=== PATIENT | male | born 1950 | race Caucasian/White ===

== ENCOUNTER 2017-01-08 07:33 | Emergency (ER) | payer BC ==
[2017-01-08 07:38] VITALS: BP 138/85
--- NOTE | 2017-01-08 08:54 | RAD ---
INDICATION: Hand pain after punching a wall COMPARISON: None. TECHNIQUE: 4 views of the right hand were obtained. FINDINGS: There is a slightly displaced fracture through the diaphysis of the right fifth metacarpal. Remaining visualized bones are intact and properly aligned. IMPRESSION: Slightly displaced diaphyseal fracture of the right fifth metacarpal.
--- NOTE | 2017-01-08 13:37 | ED ---
Kary Finnegan Auryana, scribed for Noe Peguero MD on 01/08/17 at 0819 . Upper Extremity Pain - HPI Summary HPI Summary: 66 year old male presents with right hand pain starting 6 days ago. He states that he hit a wall - states that he does not know why. He also has right hand swelling and pain with movement along the pinky finger but has full ROM. He denies any skin breaks or any other injuries. Patient is right handed. - History of Current Complaint Chief Complaint: EDExtremityUpper Stated Complaint: RT HAND INJURY Time Seen by Provider: 01/08/17 08:05 Hx Obtained From: Patient Mechanism Of Injury: Blunt Trauma - wall Onset/Duration: Started Minutes Ago - about 20 minutes [employer], Traumatic Timing: Constant Severity Initially: Mild Severity Currently: Mild Pain Location: Hand - right Aggravating Factor(s): Movement Alleviating Factor(s): Nothing Associated Signs & Symptoms: Positive: Swelling Related History: Dominant Hand Right PMH/Surg Hx/FS Hx/Imm Hx GI History: Reports: Hx Diverticulosis Sensory History: Reports: Hx Contacts or Glasses - glasses Opthamlomology History: Reports: Hx Contacts or Glasses - glasses - Surgical History Surgery Procedure, Year, and Place: R eye catatact surgery Infectious Disease History: No Infectious Disease History: Denies: Traveled Outside the [place] in Last 30 Days - Family History Known Family History: Positive: Cardiac Disease, Diabetes - Social History Occupation: Retired Lives: With Family - Alcohol Use: Occasionally Hx Substance Use: No Substance Use Type: Reports: None Hx Tobacco Use: Yes Smoking Status (MU): Smoker, Current Status Unknown Review of Systems Constitutional: Negative Eyes: Negative ENT: Negative Cardiovascular: Negative Respiratory: Negative Gastrointestinal: Negative Genitourinary: Negative Positive: Edema - R hand , Other - RIGHT HAND PAIN Skin: Negative Neurological: Negative Psychological: Normal All Other Systems Reviewed And Are Negative: Yes Physical Exam - Summary Physical Exam Summary: The patient is well-nourished in no acute distress and in no acute pain. The skin is warm and dry and skin color reflects adequate perfusion. HEENT: The head is normocephalic and atraumatic. The pupils are equal and reactive. The conjunctivae are clear and without drainage. Nares are patent and without drainage. Mouth reveals moist mucous membranes and the throat is without erythema and exudate. The external ears are intact. The ear canals are patent and without drainage. The tympanic membranes are intact. Neck is supple with full range of motion and non-tender. There are no carotid bruits. There is no neck vein distension. Respiratory: Chest is non-tender. Lungs are clear to auscultation and breath sounds are symmetrical and equal. Cardiovascular: Heart is regular rate and rhythm. There is no murmur or rub auscultated. There is no peripheral edema and pulses are symmetrical and equal. Abdomen: The abdomen is soft and non-tender. There are normal bowel sounds heard in all four quadrants and there is no organomegaly palpated. Musculoskeletal: There is no back pain noted. Pain at the 5th metacarpal- distal aspect with full range of motion, flexion and extension. There is good capillary refill and pulses. There is no peripheral edema or calf tenderness elicited. Finger to thumb is good. No pain at carpal bones, elbow, wrist or shoulder with movement. Neurological: Patient is alert and oriented to person, place and time. The patient has symmetrical motor strength in all four extremities. Cranial nerves are grossly intact. Deep tendon reflexes are symmetrical and equal in all four extremities. Psychiatric: The patient has an appropriate affect and does not exhibit any anxiety or depression. Triage Information Reviewed: Yes Vital Signs On Initial Exam: Initial Vitals Temp Pulse Resp BP Pulse Ox 98.5 F 60 16 138/85 95 01/08/17 07:36 01/08/17 07:36 01/08/17 07:36 01/08/17 07:36 01/08/17 07:36 Vital Signs Reviewed: Yes Procedures - Splinting Location: R hand - Splinting by Dr. Peguero Hand-Made Type: orthoglass - 4 INCH OCL Splint: ulnar - slight flexion with ulnar gutter Pre-Proc Neuro Vasc Exam: normal Post-Proc Neuro Vasc Exam: normal Diagnostics - Vital Signs Vital Signs Temp Pulse Resp BP Pulse Ox 01/08/17 07:37 97.9 F 60 16 138/85 95 01/08/17 07:36 98.5 F 60 16 138/85 95 - Laboratory Lab Statement: Any lab studies that have been ordered have been reviewed, and results considered in the medical decision making process. - Radiology R HAND XR Xray Interpretation: Positive (See Comments) - FINDINGS: There is a slightly displaced fracture through the diaphysis of the right fifth metacarpal. Remaining visualized bones are intact and properly aligned. Radiology Interpretation Completed By: Radiologist Course/Dx - Course Assessment/Plan: 66 year old male presents with right hand pain and swelling s/ p hitting wall - unknown reason for action. RIhgt hand dominent with good finger to thumb. No elbow, shoulder, or wrist pain with flexion. R hand XR- positive fracture with slight displacement. Will splint and discharge home with Dr. Fields F/U. States would not like pain medication for hand - advised to take ibuprofen as needed. Given paperwork on compartment syndrome and advised to look out for symptoms. - Diagnoses Differential Diagnosis/HQI/PQRI: Positive: Fracture (Closed), Other - dislocation Provider Diagnoses: Metacarpal bone fracture Discharge - Discharge Plan Condition: Stable Disposition: HOME Patient Education Materials: Hand Fracture (ED), RICE Therapy (ED), Ibuprofen ( By mouth) Referrals: Brian Fields MD [Medical Doctor] - 2 Days The documentation as recorded by the Kary acosta Auryana accurately reflects the service I personally performed and the decisions made by , Noe Peguero MD.
== END 2017-01-08 09:34 | disposition home or self-care (01) ==
LOC: ED 07:33
DX: S62.306A Unspecified fracture of fifth metacarpal bone, right hand, initial encounter for closed fracture (principal); R60.0 Localized edema; W22.01XA Walked into wall, initial encounter; Y93.89 Activity, other specified; Y92.9 Unspecified place or not applicable
CPT/HCPCS: 99282

== ENCOUNTER 2017-10-01 07:35 | Emergency (ER) | payer MEDICARE, OTHER ==
[2017-10-01] MEDS ORDERED: NS 0.9% 1000 ML* 1,000 ML IV ONE (07:52)
[2017-10-01 08:32] LABS: ABS Basophils 0.1 10^3/ul (0-0.2); ABS Eosinophils 0.3 10^3/ul (0-0.6); ABS Lymphocytes 2.2 10^3/ul (1.0-4.8); ABS Neutrophils 8.4 10^3/ul (1.5-7.7); ABS Nucleated RBC 0 10^3/ul; Eosinophil % 2.4 % (0-6); Hematocrit 51 % (42-52); Hemoglobin 17.4 g/dl (14.0-18.0); Lymphocyte % 18.5 % (25-47); Mean Corpuscular HGB Conc 34 g/dl (31-36); Mean Corpuscular Hemoglobin 30 pg (27-31); Mean Corpuscular Volume 90 fL (80-94); Mean Platelet Volume 8 um3 (7.4-10.4); Nucleated Red Blood Cells % 0.1; Platelet Count 303 10^3/ul (150-450); Red Blood Count 5.72 10^6/ul (4.0-5.4); Red Cell Distribution Width 14 % (10.5-15); White Blood Count 11.9 10^3/ul (3.5-10.8)
[2017-10-01 08:44] LABS: EGFR Non-African American 74.1 (>60)
[2017-10-01 08:47] LABS: Urine Appearance Cloudy; Urine Blood 3+ (Negative); Urine Ketones Negative (Negative); Urine Protein 2+(100 mg/dL) (Negative); Urine Urobilinogen Negative (Negative)
--- NOTE | 2017-10-01 08:48 | RAD ---
INDICATION: Right-sided flank pain, hematuria. COMPARISON: Comparison is made with a prior CT of the abdomen and pelvis from June 27, 2007. TECHNIQUE: A CT scan of the abdomen and pelvis was performed without intravenous or oral contrast. Contiguous axial sections were obtained from the lung bases through the symphysis pubis. Images were reconstructed in the coronal and sagittal planes. FINDINGS: There is dependent bilateral lower lobe subsegmental atelectasis. No pleural effusion is present. The liver is mildly enlarged and decreased in attenuation consistent with fatty infiltration. No significant focal abnormality is seen on this noncontrast study. No calcified gallstones are noted. The pancreas and spleen appear to be within normal limits. The adrenal glands and kidneys are normal in size. No renal calculi are seen. There are multiple areas of lobulated urinary bladder wall thickening with areas of calcification highly suspicious for bladder tumor. No hydronephrosis is seen. The aorta is normal in caliber with mild calcific plaque present. No significant enlarged retroperitoneal lymph nodes are seen. The stomach, small and large bowel appear nondistended. The appendix is within normal limits. There is moderate descending and sigmoid diverticulosis. There is thickening of the wall of the mid sigmoid colon. This is in the region of a prior episode of diverticulitis although note acute changes are appreciated. No free intraperitoneal air or fluid is seen. No significant focal osseous abnormality is seen. The results of this examination were discussed with the referring clinician. IMPRESSION: 1. LOBULATED THICKENING OF THE WALL OF THE URINARY BLADDER HIGHLY SUSPICIOUS FOR A NEOPLASTIC PROCESS. RECOMMEND UROLOGIC CONSULTATION AND OUTPATIENT CT UROGRAPHY FOR FURTHER EVALUATION. 2. THICKENING OF THE WALL OF THE SIGMOID COLON CONSIDER COLONOSCOPY FOR FURTHER EVALUATION. 3. MILD HEPATOMEGALY AND HEPATIC STEATOSIS.
[2017-10-01 08:49] LABS: Urine Color Red
[2017-10-01 08:52] LABS: INR 0.97 (0.77-1.02)
[2017-10-01] MEDS ORDERED: Ciprofloxacin 400MG IVPREMIX(* 400 MG/200 ML BAG IVPB ONE (09:24)
[2017-10-01] MEDS ORDERED: Iohexol 300* (CONTRAST) 10 ML SDV IV ONE (10:51)
--- NOTE | 2017-10-01 11:37 | RAD ---
CLINICAL HISTORY: Bloody urine, bladder thickening with hematuria COMPARISON: CT dated October 01, 2017 at 8:22 AM, CT dated June 27, 2007 TECHNIQUE: Multiple contiguous axial CT scans were obtained of the abdomen and pelvis after the administration of intravenous contrast. Coronal and sagittal multiplanar reformations are submitted for review. Oral contrast was not administered. Delayed images were obtained through the abdomen and pelvis. 3-D volumetric reconstructions of the renal collecting system are submitted. FINDINGS: LUNG BASES: The lung bases are clear. LIVER: The liver is diffusely low in attenuation compared to the spleen. There are no focal hepatic parenchymal masses. BILE DUCTS: There is no intrahepatic or extrahepatic biliary dilatation. GALLBLADDER: The gallbladder is normal, without pericholecystic inflammatory change. PANCREAS: The pancreas is normal, without mass or ductal dilatation. SPLEEN: Normal in size and appearance. UPPER GI TRACT: Evaluation of the gastrointestinal tract is limited by incomplete gastric distention. The upper GI tract is unremarkable. SMALL BOWEL AND MESENTERY: The small bowel is normal in contour, course, and caliber. There is no obstruction or dilatation. COLON: There are extensive diverticula of the sigmoid colon. There is mucosal thickening of the sigmoid colon. There is no pericolonic inflammatory change. ADRENALS: Normal bilaterally. KIDNEYS: The kidneys are normal in shape, size, contour, and axis. There is no hydronephrosis or nephrolithiasis. BLADDER: Again noted are multiple lobulated masses of the bladder wall. These are enhancing. There is no appreciable perivesicular extension. PELVIC ORGANS: The prostate gland is normal. The seminal vesicles are symmetric. AORTA: There is calcific atherosclerotic disease of the abdominal aorta and its branches, without aneurysmal dilatation IVC: Unremarkable LYMPH NODES: There is no lymphadenopathy by size criteria. ABDOMINAL WALL: There is no evidence for abdominal wall hernia. BONES AND SOFT TISSUES: Degenerative changes are noted of the spine OTHER: None IMPRESSION: 1. THE LOBULATED MASSES OF THE BLADDER WALL ARE AGAIN IDENTIFIED. THESE ARE ENHANCING, MOST CONSISTENT WITH BLADDER WALL NEOPLASM. THERE ARE NO APPRECIABLE UPPER URINARY TRACT LESIONS. 2. AGAIN NOTED IS DIVERTICULOSIS OF THE SIGMOID COLON WITH SIGMOID COLONIC MUCOSAL THICKENING. RECOMMEND CONSIDERATION OF CORRELATION WITH DIRECT VISUALIZATION TO EXCLUDE MUCOSAL NEOPLASM. 3. ATHEROSCLEROSIS. 4. FATTY INFILTRATION OF THE LIVER
[2017-10-01 12:18] VITALS: BP 115/77
--- NOTE | 2017-10-02 10:13 | ED ---
Aurelio Finnegan Gabriel, scribed for Jim Boyer MD on 10/01/17 at 0759 . GI/ HPI - HPI Summary HPI Summary: This patient is a 14 year old M presenting to [facility] accompanied by his with a chief complaint of hematuria since 09/30/17 at 1700. The patient rates the pain 3/10 in severity. Patient reports dysuria, flank pain, and increased urinary frequency. Patient denies fever. Patient states he just recently started taking super beta prostate but has been having these symptoms on and off for years. Patient is not on blood thinners. - History of Current Complaint Chief Complaint: EDUrogenitalProblems Time Seen by Provider: 10/01/17 07:52 Stated Complaint: BLOODY URINE Hx Obtained From: Patient Onset/Duration: Started Days Ago - 1, Still Present Severity: Mild Current Severity: Mild Pain Intensity: 3 Location of Pain: Flank Associated Signs and Symptoms: Positive: Hematuria, Other: - dysuria, flank pain , and increased urinary frequency.. Negative: Fever - Allergy/Home Medications Allergies/Adverse Reactions: Allergies Allergy/AdvReac Type Severity Reaction Status Date / Time No Known Allergies Allergy Verified 10/01/17 08:21 Home Medications: Home Medications Misc Natural Products [Prostate Health] 1 cap PO BID 10/01/17 [History Confirmed 10/01/17] PMH/Surg Hx/FS Hx/Imm Hx GI History: Reports: Hx Diverticulosis History: Reports: Hx Benign Prostatic Hyperplasia Sensory History: Reports: Hx Contacts or Glasses - glasses Opthamlomology History: Reports: Hx Contacts or Glasses - glasses - Surgical History Surgery Procedure, Year, and Place: R eye catatact surgery Infectious Disease History: No Infectious Disease History: Denies: Traveled Outside the [place] in Last 30 Days - Family History Known Family History: Positive: Cardiac Disease, Diabetes Negative: Renal Disease, Respiratory Disease, Seizure Disorder - Social History Lives: With Family Alcohol Use: Occasionally Hx Substance Use: No Substance Use Type: Reports: None Hx Tobacco Use: Yes Smoking Status (MU): Smoker, Current Status Unknown Review of Systems Negative: Fever Positive: dysuria, frequency - increased , flank pain, hematuria All Other Systems Reviewed And Are Negative: Yes Physical Exam - Summary Physical Exam Summary: VITAL SIGNS: Reviewed. GENERAL: Patient is a well-developed and nourished male who is lying comfortable in the stretcher. Patient is not in any acute respiratory distress. HEAD AND FACE: No signs of trauma. No ecchymosis, hematomas or skull depressions. No sinus tenderness. EYES: PERRLA, EOMI x 2, No injected conjunctiva, no nystagmus. EARS: Hearing grossly intact. Ear canals and tympanic membranes are within normal limits. MOUTH: Oropharynx within normal limits. NECK: Supple, trachea is midline, no adenopathy, no JVD, no carotid bruit, no c- spine tenderness, neck with full ROM. CHEST: Symmetric, no tenderness at palpation LUNGS: Clear to auscultation bilaterally. No wheezing or crackles. CVS: Regular rate and rhythm, S1 and S2 present, no murmurs or gallops appreciated. ABDOMEN: Soft. No signs of distention. No rebound no guarding, and no masses palpated. Bowel sounds are normal.Slight right CVA tenderness EXTREMITIES: FROM in all major joints, no edema, no cyanosis or clubbing. NEURO: Alert and oriented x 3. No acute neurological deficits. Speech is normal and follows commands. SKIN: Dry and warm Triage Information Reviewed: Yes Vital Signs On Initial Exam: Initial Vitals Temp Pulse Resp BP Pulse Ox 98.4 F 58 18 134/76 92 10/01/17 07:44 10/01/17 07:44 10/01/17 07:44 10/01/17 07:44 10/01/17 07:44 Vital Signs Reviewed: Yes Diagnostics - Vital Signs Vital Signs Temp Pulse Resp BP Pulse Ox 10/01/17 07:44 98.4 F 58 18 134/76 92 - Laboratory Lab Results: Lab Results 10/01/17 10/01/17 10/01/17 Range/Units 08:11 08:11 08:11 WBC 11.9 H (3.5-10.8) 10^3/ul RBC 5.72 H (4.0-5.4) 10^6/ul Hgb 17.4 (14.0-18.0) g/dl Hct 51 (42-52) % MCV 90 (80-94) fL MCH 30 (27-31) pg MCHC 34 (31-36) g/dl RDW 14 (10.5-15) % Plt Count 303 (150-450) 10^3/ul MPV 8 (7.4-10.4) um3 Neut % (Auto) 70.4 (38-83) % Lymph % (Auto) 18.5 L (25-47) % Douglas % (Auto) 8.0 (1-9) % Eos % (Auto) 2.4 (0-6) % Baso % (Auto) 0.7 (0-2) % Absolute Neuts (auto) 8.4 H (1.5-7.7) 10^3/ul Absolute Lymphs (auto) 2.2 (1.0-4.8) 10^3/ul Absolute Monos (auto) 1.0 H (0-0.8) 10^3/ul Absolute Eos (auto) 0.3 (0-0.6) 10^3/ul Absolute Basos (auto) 0.1 (0-0.2) 10^3/ul Absolute Nucleated RBC 0 10^3/ul Nucleated RBC % 0.1 INR (Anticoag Therapy) (0.77-1.02) APTT (26.0-36.3) seconds Sodium 135 (133-145) mmol/L Potassium 4.2 (3.5-5.0) mmol/L Chloride 104 (101-111) mmol/L Carbon Dioxide 24 (22-32) mmol/L Anion Gap 7 (2-11) mmol/L BUN 17 (6-24) mg/dL Creatinine 1.01 (0.67-1.17) mg/dL Est GFR ( Amer) 95.3 (>60) Est GFR (Non-Af Amer) 74.1 (>60) BUN/Creatinine Ratio 16.8 (8-20) Glucose 149 H (70-100) mg/dL Lactic Acid 0.8 (0.5-2.0) mmol/L Calcium 9.4 (8.6-10.3) mg/dL Total Bilirubin 0.50 (0.2-1.0) mg/dL AST 14 (13-39) U/L ALT 21 (7-52) U/L Alkaline Phosphatase 89 (34-104) U/L C-Reactive Protein 13.04 H (< 5.00) mg/L B-Natriuretic Peptide ( - 100) pg/mL Total Protein 7.2 (6.4-8.9) g/dL Albumin 4.0 (3.2-5.2) g/dL Globulin 3.2 (2-4) g/dL Albumin/Globulin Ratio 1.3 (1-3) Lipase 16 (11.0-82.0) U/L Urine Color Urine Appearance Urine pH (5-9) Ur Specific [place] (1.010-1.030) Urine Protein (Negative) Urine Ketones (Negative) Urine Blood (Negative) Urine Nitrate (Negative) Urine Bilirubin (Negative) Urine Urobilinogen (Negative) Ur Leukocyte Esterase (Negative) Urine WBC (Auto) (Absent) Urine RBC (Auto) (Absent) Urine Bacteria (Absent) Urine Glucose (Negative) 10/01/17 10/01/17 10/01/17 Range/Units 08:11 08:11 08:23 WBC (3.5-10.8) 10^3/ul RBC (4.0-5.4) 10^6/ul Hgb (14.0-18.0) g/dl Hct (42-52) % MCV (80-94) fL MCH (27-31) pg MCHC (31-36) g/dl RDW (10.5-15) % Plt Count (150-450) 10^3/ul MPV (7.4-10.4) um3 Neut % (Auto) (38-83) % Lymph % (Auto) (25-47) % Douglas % (Auto) (1-9) % Eos % (Auto) (0-6) % Baso % (Auto) (0-2) % Absolute Neuts (auto) (1.5-7.7) 10^3/ul Absolute Lymphs (auto) (1.0-4.8) 10^3/ul Absolute Monos (auto) (0-0.8) 10^3/ul Absolute Eos (auto) (0-0.6) 10^3/ul Absolute Basos (auto) (0-0.2) 10^3/ul Absolute Nucleated RBC 10^3/ul Nucleated RBC % INR (Anticoag Therapy) 0.97 (0.77-1.02) APTT 38.8 H (26.0-36.3) seconds Sodium (133-145) mmol/L Potassium (3.5-5.0) mmol/L Chloride (101-111) mmol/L Carbon Dioxide (22-32) mmol/L Anion Gap (2-11) mmol/L BUN (6-24) mg/dL Creatinine (0.67-1.17) mg/dL Est GFR ( Amer) (>60) Est GFR (Non-Af Amer) (>60) BUN/Creatinine Ratio (8-20) Glucose (70-100) mg/dL Lactic Acid (0.5-2.0) mmol/L Calcium (8.6-10.3) mg/dL Total Bilirubin (0.2-1.0) mg/dL AST (13-39) U/L ALT (7-52) U/L Alkaline Phosphatase (34-104) U/L C-Reactive Protein (< 5.00) mg/L B-Natriuretic Peptide 32 ( - 100) pg/mL Total Protein (6.4-8.9) g/dL Albumin (3.2-5.2) g/dL Globulin (2-4) g/dL Albumin/Globulin Ratio (1-3) Lipase (11.0-82.0) U/L Urine Color Red A Urine Appearance Cloudy Urine pH 6.0 (5-9) Ur Specific [place] 1.010 (1.010-1.030) Urine Protein 2+(100 mg/dl) H (Negative) Urine Ketones Negative (Negative) Urine Blood 3+ H (Negative) Urine Nitrate Negative (Negative) Urine Bilirubin Negative (Negative) Urine Urobilinogen Negative (Negative) Ur Leukocyte Esterase Trace H (Negative) Urine WBC (Auto) 1+(6-10/hpf) H (Absent) Urine RBC (Auto) 3+(>10/hpf) H (Absent) Urine Bacteria Absent (Absent) Urine Glucose Negative (Negative) Result Diagrams: 10/01/17 08:11 10/01/17 08:11 Lab Statement: Any lab studies that have been ordered have been reviewed, and results considered in the medical decision making process. - CT CT ABD/Pelvis CT Interpretation Completed By: Radiologist - , 1. LOBULATED THICKENING OF THE WALL OF THE URINARY BLADDER HIGHLY SUSPICIOUS FOR A NEOPLASTIC PROCESS. RECOMMEND UROLOGIC CONSULTATION AND OUTPATIENT CT UROGRAPHY FOR FURTHER EVALUATION. 2. THICKENING OF THE WALL OF THE SIGMOID COLON CONSIDER COLONOSCOPY FOR FURTHER EVALUATION. 3. MILD HEPATOMEGALY AND HEPATIC STEATOSIS. ED physician has reviewed this radiology report. CT urogram CT Interpretation Completed By: Radiologist - 1. THE LOBULATED MASSES OF THE BLADDER WALL ARE AGAIN IDENTIFIED. THESE ARE ENHANCING, MOST CONSISTENT WITH BLADDER WALL NEOPLASM. THERE ARE NO APPRECIABLE UPPER URINARY TRACT LESIONS. 2. AGAIN NOTED IS DIVERTICULOSIS OF THE SIGMOID COLON WITH SIGMOID COLONIC MUCOSAL THICKENING. RECOMMEND CONSIDERATION OF CORRELATION WITH DIRECT VISUALIZATION TO EXCLUDE MUCOSAL NEOPLASM. 3. ATHEROSCLEROSIS. 4. FATTY INFILTRATION OF THE LIVER ED physician has reviewed this radiology report. GIGU Course/Dx - Course Assessment/Plan: In the ED course an IV access was obtained. Patient was placed in a case monitor. Patient was started with IV fluids. Labs without any significant abnormality except for WBC 11.9, UA with red color, 3+ blood, positive ketones and positive UTI. Abdominal and pelvic CT IMPRESSION: 1. LOBULATED THICKENING OF THE WALL OF THE URINARY BLADDER HIGHLY SUSPICIOUS FOR A NEOPLASTIC PROCESS. RECOMMEND UROLOGIC CONSULTATION AND OUTPATIENT CT UROGRAPHY FOR FURTHER EVALUATION. 2. THICKENING OF THE WALL OF THE SIGMOID COLON CONSIDER COLONOSCOPY FOR FURTHER EVALUATION. 3. MILD HEPATOMEGALY AND HEPATIC STEATOSIS. Abdominal and pelvic CT Urogram IMPRESSION: 1. THE LOBULATED MASSES OF THE BLADDER WALL ARE AGAIN IDENTIFIED. THESE ARE ENHANCING, MOST CONSISTENT WITH BLADDER WALL NEOPLASM. THERE ARE NO APPRECIABLE UPPER URINARY TRACT LESIONS. 2. AGAIN NOTED IS DIVERTICULOSIS OF THE SIGMOID COLON WITH SIGMOID COLONIC MUCOSAL THICKENING. RECOMMEND CONSIDERATION OF CORRELATION WITH DIRECT VISUALIZATION TO EXCLUDE MUCOSAL NEOPLASM. 3. ATHEROSCLEROSIS. 4. FATTY INFILTRATION OF THE LIVER. I discussed the case with Dr. Osorio and he agrees with management and he recommends discharge home and will f/u with him at his office on Wednesday at 8AM. I discussed all the findings and test results with the patient. Patient was instructed to return to the emergency room immediately if any of the symptoms return or worsens. Plan of care was discussed with the patient and understands and agrees. All questions were answered at patient satisfaction. There were no further complaints or concerns. Lung exam before discharge: CTA B/L. Good air exchange. No wheezing or crackles heard. CVS: S1 and S2 present. No murmurs appreciated. Patient is alert and oriented x 3. Patient is hemodynamically stable. Patient will be discharged home with follow up PCP in the next 2-3 days - Diagnoses Differential Diagnoses - Male: Renal Calculi, Renal Colic, Ureteral Calculi, Urinary Tract Infection Provider Diagnoses: Gross hematuria, Bladder wall thickening, r/o malignancy - Physician Notifications Discussed Care Of Patient With: Lencho Osorio Time Discussed With Above Provider: 10:18 Instructed by Provider To: Other - 1010 We discussed patient care with Dr. Osorio and they recommended the patient should follow up with him on Wednesday the at 8am. 1033 Dr. Osorio states he would like a CT Urogram before the patient leaves. Discharge - Discharge Plan Condition: Stable Disposition: HOME Patient Education Materials: Hematuria (ED) Referrals: Lencho Osorio MD [Medical Doctor] - 3 Days Jim Olguin MD [Primary Care Provider] - 3 Days Additional Instructions: Follow up with Dr. Osorio on Wednesday the at 8am. RETURN TO EMERGENCY DEPARTMENT FOR ANY NEW OR WORSENING SYMPTOMS The documentation as recorded by the Aurelio acosta Gabriel accurately reflects the service I personally performed and the decisions made by , Jim Boyer MD.
== END 2017-10-01 12:17 | disposition home or self-care (01) ==
LOC: ED 07:35
DX: R31.0 Gross hematuria (principal); N32.9 Bladder disorder, unspecified; K57.30 Diverticulosis of large intestine without perforation or abscess without bleeding; I70.0 Atherosclerosis of aorta; K76.0 Fatty (change of) liver, not elsewhere classified; F17.200 Nicotine dependence, unspecified, uncomplicated
CPT/HCPCS: 36415; 74176; 74178; 76377; 80053; 81003; 81015; 83605; 83690; 83880; 85025; 85610; 85730; 86140; 87040; 87086; 96361; 96365; 96366; 99283; J0744; Q9967

== ENCOUNTER 2017-10-20 07:33 | Observation (INO) | payer MEDICARE, OTHER ==
--- NOTE | 2017-10-07 10:20 | HP ---
CC: Dr. Jim Olguin * ADMITTING HISTORY AND PHYSICAL: DATE OF ADMISSION: 10/20/17 - [facility] ADMITTING DIAGNOSES: 1. Gross hematuria. 2. Multiple large bladder tumors. PLANNED PROCEDURE: Transurethral resection of multiple bladder tumors, possible bilateral stent insertion. SURGEON: Dr. Osorio. ADMITTING HISTORY OF PRESENT ILLNESS: Hai Sterling is a 67-year-old chronic smoker, who has had episodic gross hematuria for the last 8 months. This finally got worse last week, prompting him to come to the emergency room where a CT scan was obtained initially without contrast and subsequently with contrast , which revealed multiple large bladder tumors encompassing most of the bladder surface. There was no evidence of hydronephrosis. PAST MEDICAL HISTORY: Unremarkable. PAST SURGICAL HISTORY: Significant for laparotomy as a child for injury and history of right leg fracture. MEDICATIONS ON ADMISSION: None. ALLERGIES: No known drug allergies. SOCIAL HISTORY: Smoking history, he is a chronic heavy smoker with a 50+ pack year smoking history. REVIEW OF SYSTEMS: He denies any chest pain or shortness of breath. There is no history of diabetes mellitus or any other major systemic illness. PHYSICAL EXAMINATION GENERAL: Reveals a pleasant middle-aged gentleman. VITAL SIGNS: Blood pressure is 122/82, pulse 97 per minute, oxygen saturation is 95% on room air. LUNGS: Clear bilaterally. CARDIOVASCULAR EXAM: Regular rate and rhythm. S1, S2. ABDOMEN: Soft without masses. DIAGNOSTIC STUDIES/LAB DATA: Cystoscopy done in my office revealed multiple papillary and solid-appearing tumors involving almost all parts of the bladder including the trigone and the bladder neck and the anterior and lateral basurto, some of these had extensive neovascularity adjacent to them. Interestingly, even though the trigone appears involved by the tumors, the CT scan did not reveal any hydronephrosis. IMPRESSION: My concern obviously that this represents muscle invasive tumor. The plan is for transurethral resection of bladder tumors with possible bilateral stent insertion if needed depending on intraoperative findings and depending on the pathology, he may then possibly require radical cystectomy in the near future. I discussed above plan in detail with Mr. Sterling. PLAN: Transurethral resection of bladder tumors, possible bilateral stent insertion. [id number]/[facility] #: [id number] [facility]ENTERCristian
[~2017-10-20 07:33] MED LIST: Buffered Lidocaine 0.9% SYRIN* 5 ML/SYR SYRINGE INTRADERM ONE; Famotidine IV* 10 MG/ML 2 ML (20 mg) IV ONE
[2017-10-20] MEDS ORDERED: Famotidine IV* 10 MG/ML 2 ML (20 mg) ONE (07:46)
[2017-10-20] MEDS ORDERED: Buffered Lidocaine 0.9% SYRIN* 5 ML/SYR SYRINGE ONE (07:46)
[2017-10-20] MEDS ORDERED: cefTRIAXone(*) 2 GM ADDV.VIAL IVPB ONE (08:15)
[2017-10-20] MEDS ORDERED: Midazolam* 1 MG/ML 2 ML VIAL (2 MG) ONE (08:41)
[2017-10-20] MEDS ORDERED: fentaNYL* 50 MCG/ML 2 ML VIAL (100 MCG VIAL) ONE ×2 (08:41→11:24)
[2017-10-20] MEDS ORDERED: Iohexol 180 (CONTRAST) 10 ML SDV IV ONE (10:42)
[2017-10-20] MEDS ORDERED: Rocuronium* 10 MG/ML VIAL ONE (10:52)
[2017-10-20] MEDS ORDERED: Ondansetron INJ* 2 MG/ML VIAL ONE (11:19)
[2017-10-20] MEDS ORDERED: Propofol* 10 MG/ML 20 ML BTL IV PUSH ONE (11:19)
[2017-10-20] MEDS ORDERED: Ketorolac INJ* 30 MG/ML 1 ML VIAL ONE (11:19)
[2017-10-20] MEDS ORDERED: Dexamethasone IV* 4 MG/ML 1 ML (4 MG) ONE (11:19)
[2017-10-20] MEDS ORDERED: Succinylcholine* 20 MG/ML 10 ML VIAL ONE (11:19)
[2017-10-20] MEDS ORDERED: DiMENhydriNATE IV* 50 MG/ML VIAL IV PUSH PRN (11:41)
[2017-10-20] MEDS ORDERED: HYDROmorphone INJ* 1 MG/ML CARPUJECT SYRINGE IV PRN (11:41)
[2017-10-20] MEDS ORDERED: oxyCODONE/Acetamin 5/325 MG* TAB PO PRN ×2 (11:41→18:49)
[2017-10-20] MEDS ORDERED: Levalbuterol 0.63MG/3ML NEB* UNIT OF USE INH PRN (11:41)
[2017-10-20] MEDS ORDERED: Naloxone* 0.4 MG/ML 1 ML VIAL IV PRN (11:41)
[2017-10-20] MEDS ORDERED: Glycopyrrolate IV* 0.2 MG/ML 1 ML VIAL ONE (11:56)
[2017-10-20] MEDS ORDERED: Neostigmine Methylsulfate* 2 MG/2 ML SYRINGE ONE (11:56)
[2017-10-20] MEDS ORDERED: Levalbuterol 0.63MG/3ML NEB* UNIT OF USE INH ONE (12:29)
[2017-10-20] MEDS ORDERED: oxyCODONE/Acetamin 5/325 MG* TAB ONE (13:30)
[2017-10-20] MEDS ORDERED: Oxybutynin TAB* 5 MG PO PRN (18:49)
[2017-10-21 07:46] VITALS: BP 109/57
--- NOTE | 2017-10-21 11:07 | OP ---
CC: Dr. Olguin OPERATIVE REPORT: DATE OF OPERATION: 10/20/17 DATE OF : 54 SURGEON: Gabriel Medrano MD. ANESTHESIOLOGIST: Dr. Gaston. ANESTHESIA: General. PRE-OP DIAGNOSES: 1. Extensive bladder tumors. 2. Gross hematuria due to above. POST-OP DIAGNOSES: 1. Extensive bladder tumors. 2. Gross hematuria due to above. OPERATIVE PROCEDURE: 1. Cystoscopy. 2. Transurethral resection of bladder tumor (5 cm). INDICATIONS: Mr. Sterling is a 67-year-old white male, who is a chronic heavy smoker and who started having recurrent episodes of gross hematuria for at least the last year. Gross hematuria became a lot worse in the last 2 weeks, with dark gross hematuria. CT urogram showed extensive bladder tumors replacing almost all the bladder wall. There was no hydronephrosis and the collecting systems looked normal. Because of the above history and finding, the patient was admitted for the above procedure, mostly for diagnostic purposes. PATHOLOGY AT CYSTOSCOPY: The penile and bulbar urethrae looked normal. The prostatic urethra measured about 2.5 cm in length. There was a papillary tumor seen at the bladder neck protruding into the prostatic urethra and obstructing the bladder neck. Examination of the bladder showed extensive bladder tumors involving practically the whole bladder wall. Some of the tumors were flat, some of them were papillary, the surface of the tumors was whitish indicating necrosis. The tumors involved the bladder neck circumferentially. The ureteral orifices could not be identified due to the overlying tumors. Some of the tumors were actively oozing. There was relatively poor visualization of the bladder wall considering the extent of the tumors and the slow oozing. DESCRIPTION OF PROCEDURE: After successful general endotracheal anesthesia, the patient was placed in the lithotomy position and was prepped and draped for a cystoscopy. Cystoscopy was performed. The bladder was inspected and above findings were noted. The resectoscope was then introduced into the bladder. Mannitol/sorbitol solution was used for irrigation. The inflow and outflow were adjusted to avoid over distention of the bladder. Considering the extent of the tumors noted, it was decided to resect the accessible tumors mostly for diagnostic purposes and to plan for his future treatments. The tumor located at the bladder neck between 6 o'clock and 12 o' clock was resected all the way deep to muscle. The bleeders were electrocoagulated. The resected tissue was evacuated. Good hemostasis from the resected area was achieved. The ureteral orifices could not be visualized because of the overlying tumors and it was decided not to resect in that area. The resected tissue was felt to be enough for diagnosis and to check for possible muscle invasion. After achieving very good hemostasis from the resected area, there was still oozing from the extensive bladder tumor, and this was felt not to be resectable due to its extent. The bladder was irrigated and the resected tissue was evacuated and sent for pathology. A size 22-Wolof Stearns catheter was passed inside in the bladder and the balloon inflated with 10 cc of water. Irrigation yielded pinkish returns. The patient tolerated the procedure well and left the operating room in good condition. The blood loss from the resection was minimal and the specimen was bladder tumor of left bladder neck and anterior wall. The patient will most likely is going to require a radical cystectomy and an ileal conduit. He will be referred to a tertiary care center for his additional treatments. [id number]/[facility] #: [id number] BABITA
--- NOTE | 2017-10-22 00:09 | DS ---
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 OPERATION: Cystoscopy, transurethral resection of bladder tumor. HISTORY: Mr. Sterling is a 67-year-old white male who is a chronic heavy smoker who was referred to our office by Dr. Olguin because of recurrent episodes of total gross painless hematuria for at least 1 year. He had a CT urogram, which showed normal upper tracts and normal ureters without any hydronephrosis or abnormal filling defects. The bladder showed extensive tumors involving most of the bladder wall. The patient also was having symptoms of bladder outlet obstruction associated with the gross hematuria. PAST MEDICAL HISTORY: Otherwise negative. He gives a past history of laparotomy because of a trauma as a child. He denies any cardiac or pulmonary diseases or symptoms. He is on no chronic medications and has no allergies to medications. PHYSICAL EXAMINATION: He is moderately overweight, otherwise healthy-looking white male. Blood pressure 120/80, pulse of 90, oxygen saturation 96% on room air. Exam of the heart and lungs is normal. Abdominal exam was normal. Rectal exam showed a moderately enlarged, but nonsuspicious prostate. COURSE IN THE HOSPITAL: The patient was taken to the operating room for a cystoscopy under anesthesia. There was extensive number of tumors involving practically all of the bladder wall. The bladder neck was obstructed by tumor, which was protruding into the prosthetic urethra. This was also causing partial obstruction and partial retention. I could not identify the urethral orifices. Tumors looked papillary with superficial necrosis and also looked high -grade probably invasive. I performed resection of the tumor surrounding the bladder neck and the left lateral wall with resection deep to muscle. The intention was mostly for diagnostic purposes to have a tissue diagnosis of the bladder tumors. No attempt was made to resect the rest of the bladder tumors considering their extent. In the recovery room, the patient continued to have gross hematuria very similar to what he had preoperatively and that seemed to be originating from his tumors rather than from resected area, which was very well fulgurated. The patient was kept on catheter drainage and admitted overnight for observation. On catheter drainage only with occasional irrigations, his urine has cleared up. The patient is being discharged home on catheter drainage. I had consulted Dr. Brian Doherty, uro oncologist and surgeon at [facility], regarding Mr. Sterling's case. We both felt that the patient is a candidate for urgent cystectomy for both control of the gross hematuria and attempt at cure. My office is arranging for an urgent consultation with his office. Pathology showed high grade transitional cell carcinoma. The specimen was fragmented and cauterized, and not well oriented, and the pathologist could not identify muscle invasion. Instructions were given for followup care. [id number]/[facility] #: [id number] BABITA
== END 2017-10-21 09:29 | disposition home or self-care (01) ==
LOC: OR 07:33 → SSU 18:40
PROVIDERS: ADMIT Urology; ATTEND Urology
PROC: 0TBB8ZX Excision of Bladder, Via Natural or Artificial Opening Endoscopic, Diagnostic (ICD-10-PCS; principal; 2017-10-20 09:15)
DX: C67.9 Malignant neoplasm of bladder, unspecified (principal); N32.9 Bladder disorder, unspecified; R31.9 Hematuria, unspecified; F17.210 Nicotine dependence, cigarettes, uncomplicated
CPT/HCPCS: 88305; A9270-GY; G0378; J0330; J0696; J1100; J1885; J2250; J2405; J2704; J3010; J7614

== ENCOUNTER 2018-04-26 04:23 | Emergency (ER) | payer MEDICARE, OTHER ==
--- NOTE | 2018-04-26 04:49 | ED ---
Skin Complaint - HPI Summary HPI Summary: Pt is 68 y/o M who presents to ED c/o sore spot on abdomen near his stoma due to urostomy bag. Rates pain as 1/10 in severity. Pt had bladder cancer and on 11/12/17 he had a cystectomy. - History of Current Complaint Chief Complaint: EDRashSkinAbscess Time Seen by Provider: 04/26/18 04:27 Stated Complaint: ABD PAIN Hx Obtained From: Patient Onset/Duration: Still Present Current Severity: Mild Pain Intensity: 1 Pain Scale Used: 0-10 Numeric Skin Location: Abdomen Character: Redness Aggravating Symptom(s): Nothing Alleviating Symptom(s): Nothing - Allergy/Home Medications Allergies/Adverse Reactions: Allergies Allergy/AdvReac Type Severity Reaction Status Date / Time No Known Allergies Allergy Verified 04/26/18 04:30 PMH/Surg Hx/FS Hx/Imm Hx Endocrine/Hematology History: Denies: Hx Diabetes Cardiovascular History: Denies: Hx Hypertension Respiratory History: Reports: Other Respiratory Problems/Disorders - 15+YRS AGO - PNEUMONIA GI History: Reports: Hx Diverticulosis, Other GI Disorders - HX OF DIVERTICULITIS-2011 History: Reports: Hx Benign Prostatic Hyperplasia Denies: Hx Renal Disease Sensory History: Reports: Hx Cataracts, Hx Contacts or Glasses - glasses Denies: Hx Hearing Aid Opthamlomology History: Reports: Hx Cataracts, Hx Contacts or Glasses - glasses - Surgical History Surgery Procedure, Year, and Place: R eye catatact surgery. LEFT EYE CATARACT SURGERY. STITCHES A CHILD Hx Anesthesia Reactions: No Infectious Disease History: No Infectious Disease History: Denies: Traveled Outside the [place] in Last 30 Days - Family History Known Family History: Positive: Cardiac Disease, Diabetes Negative: Renal Disease, Respiratory Disease, Seizure Disorder - Social History Alcohol Use: Occasionally Hx Substance Use: No Substance Use Type: Reports: None Hx Tobacco Use: Yes Smoking Status (MU): Heavy Every Day Tobacco Smoker Amount Used/How Often: 1 PPD X 45 YEARS Have You Smoked in the Last Year: Yes Review of Systems Negative: Fever Positive: Other - sore spot on abdomen All Other Systems Reviewed And Are Negative: Yes Physical Exam - Summary Physical Exam Summary: Appearance: Well-appearing, Well-nourished, lying in bed comfortable Skin: Warm, dry, no obvious rash Eyes: sclera anicteric, no conjunctival pallor ENT: mucous membranes moist Neck: deferred Respiratory: No signs of respiratory distress Cardiovascular: Appears well perfused, pulses are nml Abdomen: deferred Musculoskeletal: Moving all 4 extremities without obvious discomfort Neurological: Awake and alert, mentation is normal, speech is fluent and appropriate Psychiatric: affect is normal, does not appear anxious or depressed Triage Information Reviewed: Yes Vital Signs On Initial Exam: Initial Vitals Temp Pulse Resp BP Pulse Ox 98.2 F 44 18 136/85 95 04/26/18 04:25 04/26/18 04:25 04/26/18 04:25 04/26/18 04:25 04/26/18 04:25 Vital Signs Reviewed: Yes Diagnostics - Vital Signs Vital Signs Temp Pulse Resp BP Pulse Ox 04/26/18 04:25 98.2 F 44 18 136/85 95 - Laboratory Lab Statement: Any lab studies that have been ordered have been reviewed, and results considered in the medical decision making process. Course/Dx - Diagnoses Provider Diagnoses: Peristomal skin irritation and breakdown Discharge - Sign-Out/Discharge Documenting (check all that apply): Patient Departure - Discharge Plan Condition: Good Disposition: HOME Patient Education Materials: Urostomy Care (ED) Referrals: Jim Olguin MD [Primary Care Provider] - - Billing Disposition and Condition Condition: GOOD Disposition: Home - Attestation Statements Document Initiated by Scribe: Yes Documenting Scribe: Issa Manning Provider For Whom Scribe is Documenting (Include Credential): Westley Andrews MD Scribe Attestation: Issa Finnegan, scribed for Westley Andrews MD on 04/27/18 at 0451. Scribe Documentation Reviewed: Yes Provider Attestation: The documentation as recorded by the Issa acosta accurately reflects the service I personally performed and the decisions made by me, Westley Andrews MD
[2018-04-26 05:10] VITALS: BP 136/82
== END 2018-04-26 05:10 | disposition home or self-care (01) ==
LOC: ED 04:23
DX: N99.528 Other complication of incontinent external stoma of urinary tract (principal); L98.8 Other specified disorders of the skin and subcutaneous tissue
CPT/HCPCS: 99282

== ENCOUNTER 2018-08-26 16:27 | Emergency (ER) | payer MEDICARE, OTHER ==
[2018-08-26 19:10] LABS: ABS Basophils 0.1 10^3/ul (0-0.2); ABS Eosinophils 0.3 10^3/ul (0-0.6); ABS Lymphocytes 2.8 10^3/ul (1.0-4.8); ABS Neutrophils 5.9 10^3/ul (1.5-7.7); ABS Nucleated RBC 0 10^3/ul; Eosinophil % 2.9 %; Hematocrit 48 % (42-52); Hemoglobin 15.9 g/dl (14.0-18.0); Lymphocyte % 27.6 %; Mean Corpuscular HGB Conc 33 g/dl (31-36); Mean Corpuscular Hemoglobin 30 pg (27-31); Mean Corpuscular Volume 89 fL (80-94); Mean Platelet Volume 7.9 fL (7.4-10.4); Nucleated Red Blood Cells % 0.1; Platelet Count 303 10^3/ul (150-450); Red Blood Count 5.36 10^6/ul (4.00-5.40); Red Cell Distribution Width 14 % (10.5-15); White Blood Count 10.1 10^3/ul (3.5-10.8)
[2018-08-26 19:28] LABS: Albumin 4.3 g/dL (3.2-5.2); Albumin/Globulin Ratio 1.5 (1-3); BUN/Creatinine Ratio 20.4 (8-20); C Reactive Protein 7.92 mg/L (<8.01); Calcium 9.4 mg/dL (8.6-10.3); EGFR Non-African American 64.9 (>60); Globulin 2.9 g/dL (2-4); Potassium 4.2 mmol/L (3.5-5.0); Total Bilirubin 0.3 mg/dL (0.2-1.0); Total Protein 7.2 g/dL (6.4-8.9)
--- NOTE | 2018-08-26 19:49 | ED ---
GI/ HPI - HPI Summary HPI Summary: A 68 y/o male presents to [facility] with a chief complaint of a sore under his Stoma from a colostomy since 08/22/18. His reports that the sore worsened on 08/26/18. He rates his pain as a 0/10. The patient denies fever, chills, N/ V. He is concerned that the sore may be infected. The patient claims that his bladder was "full of tumors". The patient has been seen by Dr. Brian Dumont in [place] for this. - History of Current Complaint Chief Complaint: EDGeneral Time Seen by Provider: 08/26/18 19:38 Stated Complaint: POSS INFECTION Hx Obtained From: Patient, Family/Leaf Conditioner Helper Onset/Duration: Started Days Ago, Still Present Timing: Constant, Lasting Days Severity: Mild Current Severity: Mild Pain Intensity: 0 - out of 10 Location of Pain: Diffuse Associated Signs and Symptoms: Negative: Nausea, Vomiting, Fever, Chills Aggravating Factor(s): Nothing Alleviating Factor(s): Nothing - Allergy/Home Medications Allergies/Adverse Reactions: Allergies Allergy/AdvReac Type Severity Reaction Status Date / Time No Known Allergies Allergy Verified 04/26/18 04:30 PMH/Surg Hx/FS Hx/Imm Hx Endocrine/Hematology History: Denies: Hx Diabetes Cardiovascular History: Denies: Hx Hypertension Respiratory History: Reports: Other Respiratory Problems/Disorders - 15+YRS AGO - PNEUMONIA GI History: Reports: Hx Diverticulosis, Other GI Disorders - HX OF DIVERTICULITIS-2011 History: Reports: Hx Benign Prostatic Hyperplasia Denies: Hx Renal Disease Sensory History: Reports: Hx Cataracts, Hx Contacts or Glasses - glasses Denies: Hx Hearing Aid Opthamlomology History: Reports: Hx Cataracts, Hx Contacts or Glasses - glasses - Cancer History Cancer Type, Location and Year: BLADDER - Surgical History Surgery Procedure, Year, and Place: R eye catatact surgery. LEFT EYE CATARACT SURGERY. STITCHES A CHILD. CYSTECTOMY Hx Anesthesia Reactions: No Infectious Disease History: No Infectious Disease History: Denies: Traveled Outside the [place] in Last 30 Days - Family History Known Family History: Positive: Cardiac Disease, Diabetes Negative: Renal Disease, Respiratory Disease, Seizure Disorder - Social History Alcohol Use: Occasionally Hx Substance Use: No Substance Use Type: Reports: None Hx Tobacco Use: Yes Smoking Status (MU): Heavy Every Day Tobacco Smoker Amount Used/How Often: 1 PPD X 45 YEARS Have You Smoked in the Last Year: Yes Review of Systems Negative: Fever, Chills Negative: Abdominal Pain, Nausea Positive: Other - positive: sore under stoma, itching All Other Systems Reviewed And Are Negative: Yes Physical Exam - Summary Physical Exam Summary: Appearance: Well appearing, no pain distress Skin: warm, dry, reflects adequate perfusion Head/face: normal Eyes: EOMI, SIMON ENT: normal Neck: supple, non-tender Respiratory: CTA, breath sounds present Cardiovascular: RRR, pulses symmetrical Abdomen: Mild redness around stoma on abd wall. non-tender, soft Musculoskeletal: normal, strength/ROM intact Neuro: normal, sensory motor intact, A&Ox3 Triage Information Reviewed: Yes Vital Signs On Initial Exam: Initial Vitals Temp Pulse Resp BP Pulse Ox 98.3 F 73 18 117/81 94 08/26/18 16:35 08/26/18 16:35 08/26/18 16:35 08/26/18 16:35 08/26/18 16:35 Vital Signs Reviewed: Yes Diagnostics - Vital Signs Vital Signs Temp Pulse Resp BP Pulse Ox 08/26/18 19:00 97.9 F 66 16 141/84 94 08/26/18 16:35 98.3 F 73 18 117/81 94 - Laboratory Lab Results: Lab Results 08/26/18 08/26/18 08/26/18 Range/Units 18:49 18:49 18:49 WBC 10.1 (3.5-10.8) 10^3/ul RBC 5.36 (4.00-5.40) 10^6/ul Hgb 15.9 (14.0-18.0) g/dl Hct 48 (42-52) % MCV 89 (80-94) fL MCH 30 (27-31) pg MCHC 33 (31-36) g/dl RDW 14 (10.5-15) % Plt Count 303 (150-450) 10^3/ul MPV 7.9 (7.4-10.4) fL Neut % (Auto) 58.3 % Lymph % (Auto) 27.6 % [place] % (Auto) 10.4 % Eos % (Auto) 2.9 % Baso % (Auto) 0.8 % Absolute Neuts (auto) 5.9 (1.5-7.7) 10^3/ul Absolute Lymphs (auto) 2.8 (1.0-4.8) 10^3/ul Absolute Monos (auto) 1.0 H (0-0.8) 10^3/ul Absolute Eos (auto) 0.3 (0-0.6) 10^3/ul Absolute Basos (auto) 0.1 (0-0.2) 10^3/ul Absolute Nucleated RBC 0 10^3/ul Nucleated RBC % 0.1 Sodium 139 (135-145) mmol/L Potassium 4.2 (3.5-5.0) mmol/L Chloride 106 (101-111) mmol/L Carbon Dioxide 29 (22-32) mmol/L Anion Gap 4 (2-11) mmol/L BUN 23 (6-24) mg/dL Creatinine 1.13 (0.67-1.17) mg/dL Est GFR ( Amer) 78.6 (>60) Est GFR (Non-Af Amer) 64.9 (>60) BUN/Creatinine Ratio 20.4 H (8-20) Glucose 135 H (70-100) mg/dL Lactic Acid 1.0 (0.5-2.0) mmol/L Calcium 9.4 (8.6-10.3) mg/dL Total Bilirubin 0.30 (0.2-1.0) mg/dL AST 19 (13-39) U/L ALT 36 (7-52) U/L Alkaline Phosphatase 89 (34-104) U/L C-Reactive Protein 7.92 (<8.01) mg/L Total Protein 7.2 (6.4-8.9) g/dL Albumin 4.3 (3.2-5.2) g/dL Globulin 2.9 (2-4) g/dL Albumin/Globulin Ratio 1.5 (1-3) Result Diagrams: 08/26/18 18:49 08/26/18 18:49 Lab Statement: Any lab studies that have been ordered have been reviewed, and results considered in the medical decision making process. GIGU Course/Dx - Course Course Of Treatment: A 68 y/o male presents to [facility] with a chief complaint of a sore under his Stoma from a colostomy since 08/22/18. His reports that the sore worsened on 08/26/18. He rates his pain as a 0/10. The patient denies fever, chills, N/V but is concerned his sore may be infected. His physical exam revealed mild readness around his stoma. Lab results were obtained and WNL. The patient will be discharged home with a prescription for Bactrim. He was instructed to follow up with his PCP. The patient is agreeable with this plan. Dx: cellulitis of abdominal wall. - Diagnoses Provider Diagnoses: Cellulitis of abdominal wall Discharge - Sign-Out/Discharge Documenting (check all that apply): Patient Departure - DC - Discharge Plan Condition: Stable Disposition: HOME Prescriptions: Sulfamethox/Trimethoprim DS* [Bactrim DS 800/160 TAB*] 1 tab PO BID #20 tab Referrals: Jim Olguin MD [Primary Care Provider] - 3 Days Additional Instructions: Follow up with your PCP in 3 days. Return to the ED if you have any new or worsening symptoms. - Billing Disposition and Condition Condition: STABLE Disposition: Home - Attestation Statements Document Initiated by Milagros: Yes Documenting Scribe: Salinas Robb Provider For Whom Milagros is Documenting (Include Credential): Shaheen Pineda MD Scribe Attestation: I, Salinas Robb scribed for Shaheen Pineda MD on 08/27/18 at 0042. Scribe Documentation Reviewed: Yes Provider Attestation: The documentation as recorded by the Salinas acosta accurately reflects the service I personally performed and the decisions made by me, Shaheen Pineda MD Status of Scribe Document: Viewed
[2018-08-26] MEDS: Sulfamethox/Trimethoprim DS 800/160* TAB PO ONE (19:57)
[2018-08-26 20:02] VITALS: BP 147/75
== END 2018-08-26 20:07 | disposition home or self-care (01) ==
LOC: ED 16:27
DX: L03.311 Cellulitis of abdominal wall (principal); Z85.51 Personal history of malignant neoplasm of bladder; N40.0 Benign prostatic hyperplasia without lower urinary tract symptoms; F17.210 Nicotine dependence, cigarettes, uncomplicated
CPT/HCPCS: 36415; 80053; 83605; 85025; 86140; 99283; A9270-GY